=== PATIENT | female | born 1995 | race African-American/Black ===

== ENCOUNTER 2021-11-19 14:58 | Outpatient (CLI) | payer MEDICAID, SELFPAY | END 2021-11-19 14:59 | disposition home or self-care (01) | LOC: NFLDREF 14:58 | PROVIDERS: PCP Pediatrics; Visit Provider Registered Nurse | DX: N94.2 Vaginismus (principal); Z12.4 Encounter for screening for malignant neoplasm of cervix | CPT/HCPCS: 88174 ==